=== PATIENT | female | born 1995 ===

== ENCOUNTER 2021-09-18 08:05 | Emergency (ER) | payer OTHER ==
[2021-09-18] MEDS ORDERED: Ketorolac Tromethamine 30 MG/ML VIAL ONE (08:47)
[2021-09-18] MEDS ORDERED: Lidocaine/Transparent Dressing 1 EACH KIT TP SCH (10:15)
[2021-09-18] MEDS ORDERED: Lidocaine 5% Patch TD SCH (10:45)
== END 2021-09-18 10:50 | disposition home or self-care (01) ==
LOC: CSHERS 08:05
DX: M54.6 Pain in thoracic spine (principal)
CPT/HCPCS: 72128; 96372; J1885

== ENCOUNTER 2022-12-02 09:17 | Emergency (ER) | payer OTHER ==
[~2022-12-02 09:17] MED LIST: Iopamidol 300 61% 100 ML VIAL FS ONE
[2022-12-02] MEDS ORDERED: Ketorolac Tromethamine 30 MG/ML VIAL ONE (11:11)
[2022-12-02 11:35] LABS: Platelet Count 276 10x3/uL (150-450)
[2022-12-02 11:36] LABS: Mean Platelet Volume 11.2 fl (7.4-10.4)
[2022-12-02 11:38] LABS: #Eosinphils 0.1 10x3/uL (0.0-0.5); #Monocytes 0.4 10x3/uL (0.0-1.1); #Neutrophils 3.6 10x3/uL (1.5-8.4); %Basophils 0.3 % (0.0-2.0); %Eosinophils 1.1 % (0.0-6.0); %Monocytes 5.9 % (0.0-10.0); %Neutrophils 53.4 % (40.0-75.0); Hemoglobin 12.6 g/dL (12.0-15.5); Mean Corpuscular HGB CONC 34.1 g/dL (32.0-36.0); Mean Corpuscular Hemoglobin 30.2 pg (27.0-33.0); Mean Corpuscular Volume 88.7 fl (81.6-98.3); RBC Distribution Width 13.1 % (11.5-14.5); Red Blood Cell (RBC) Count 4.17 10x6/uL (3.90-5.03); White Blood Cell (WBC) Count 6.7 10x3/uL (3.5-10.5)
[2022-12-02 11:41] LABS: ALT (SGPT) 9 U/L (8-55); AST (SGOT) 13 U/L (5-34); Albumin 4.2 g/dL (3.5-5.0); Alkaline Phosphatase 55 U/L (40-110); Anion Gap 12 mmol/L (10-20); BUN (Urea Nitrogen) 11 mg/dL (7.0-18.7); Bilirubin, Total 0.3 mg/dL (0.2-1.2); Calc. Creatinine Clearance 0 mL/min (70-130); Calcium 9.2 mg/dL (7.8-10.44); Carbon Dioxide 24 mmol/L (22-29); Chloride 105 mmol/L (98-107); Estimated GFR 120; Globulin 3.7 g/dL (2.4-3.5); Glucose 85 mg/dL (70-105); Protein, Total 7.9 g/dL (6.0-8.3); Sodium 137 mmol/L (136-145)
== END 2022-12-02 12:25 | disposition home or self-care (01) ==
LOC: CSHERS 09:17
DX: K05.10 Chronic gingivitis, plaque induced (principal); R59.1 Generalized enlarged lymph nodes
CPT/HCPCS: 70491; 80053; 83605; 85025; 96374; J1885; Q9967